=== PATIENT | male | born 1995 | race Caucasian/White ===

== ENCOUNTER 2017-06-03 15:34 | Emergency (ER) | payer MEDICAID ==
[~2017-06-03] VITALS: Ht 185.4 cm; Wt 74.8 kg
--- NOTE | 2017-06-03 16:00 | Urgent Treatment Center Report ---
History of Present Issue Date/Time Seen by Provider 06/03/17 1559 Visit Reason Pt arrived:Walked Presenting Problem:PT C/O KNOT IN LOWER GROIN AREA X3 DAYS Location if Accident: Onset of symptoms date/time:/ or onset unknown for:MEDICAL HX UNKNOWN Have you (or family members/close friends) recently traveled outside the [place]? N If Yes, where/when: Have you had exposure to infectious disease within the past month? TB? Other? Specify: Here alone c/o painful knot in penis. First noticed nearly one week ago and reported as unchanged since onset initially but then during exam, reports the swelling "comes and goes". "It looks perfectly normal but feels like a bernard under the skin". Described as "at the end" but on exam, tenderness on anterior surface at proximal/base of shaft. pain made worse w/ erection. Sexually active w/ one female. No intercourse since pain started. "I can't imagine. It would be too painful.". Denies dysuria, discharge, testicular/scrotal pain/swelling, difficulty urinating. No trauma to penis with or without erection. Denies any pain "like this" in the past. No hx of STIs although tested 3-4 times in the past "for various other symptoms" but each time, reports all testing negative. Source patient Exam Limitations no limitations ALLERGIES Coded Allergies: No Known Allergies (06/03/17) Home Medications Reported Medications Naproxen (Naprosyn 500MG Tab) 500 MG PO PRN PRN PAIN #60 History Medical History General CAD? No Angina: No AR: No Hypertension? No Hyperlipidemia? No CHF? No DVT? No PE? No COPD? No Asthma? Yes Anemia? No GERD? No Gastric ulcers? No GI Bleed? No Hernia? No Thyroid Problems? No Hypothyroidism? No CVA? No Seizures? No Diabetes? No Insulin Dependent: No Insulin Pump: No Home FSBS? No Renal Insuffiency? No UTI? No Stones? No BPH? No GB Disease: No Nephritic Syndrome? No Asplenia? No Hepatitis? No Sickle Cell Disease? No Arthritis? No Migraines? No Cataracts? No Glaucoma? No MRSA? No HIV? No TB? No Anxiety? No Depression? No Cancer? No More? No Immunization HX DT/Tetanus 1-4 YRS Surgical Hx Previous Surgery?N Social History Smoking Hx Smoker: Current Every Day Smoker Tobacco: Yes Type Cigarettes Alcohol Alcohol: No Review of Systems All Other Systems Reviewed and Negative Constitutional denies fever, denies malaise Gastrointestinal denies abdominal pain, denies nausea, denies vomiting Genitourinary see HPI. denies: frequency, hesitancy, pelvic pain, genital lesions. Skin see HPI, denies change in color Psychiatric/Neurological denies numbness, denies tingling Physical Exam Vital Signs Vital Signs Date Time Temp Pulse Resp B/P Pulse O2 O2 Flow FiO2 Ox Delivery Rate 06/03 1548 99.5 79 18 151/92 96 General Appearance normal appearance, no apparent distress Respiratory Status No: respiratory distress. Cardiovascular no peripheral edema Gastrointestinal normal bowel sounds, non tender, soft, no suprapubic tenderness , no bladder distention Back no CVA tenderness Male Genitalia normal genitalia (x/ tenderness), mild tenderness anterior surface base of penile shaft, no palpable or visual abnormalities Nurse present during exam? Yes (Sunflower) Neurologic alert Skin intact, normal color, warm/dry Medical Decision Making LABS/Meds/Orders Pt receiving controlled substance in ED? No Departure Departure Time of Disposition 1624 Disposition DC Home or Self Care(routine) Clinical Impression Primary Impression: Painful penis Condition STABLE Referrals Anuj HUNTER,Jose Angel Aparicio Call tomorrow morning and request follow up appointment for painful penile shaft Additional Instructions Your exam is normal but pain is your penis is not. Be SURE to schedule follow up. Discharge Counseling Counseled pt/family regarding diagnosis, follow up needs at 164
[2017-06-03 16:57] VITALS: BP 151/92
--- OUTSIDE RECORDS SUMMARY | 2017-06-12 07:40 | External Medical Summary Rpt | CCD ---
Author Author , YOSHI Organization YOSHI Address Unknown Phone [email or web address] Immunization Name Date Rout CVX Reac Dose Comm Prov Is Faci e tion ent ider Refu lity Give sed n Tdap 03-2 115 999 Hist H149 No H149 , 4-20 oric Adso 09 al rbed Info rmat ion - Sour ce Unsp ecif ied MMR 12-1 3 999 Hist H149 No H149 1-20 oric 00 al Info rmat ion - Sour ce Unsp ecif ied DTaP 12-1 107 999 Hist H149 No H149 , UF 1-20 oric 00 al Info rmat ion - Sour ce Unsp ecif ied [place] 12-1 10 999 Hist H149 No H149 o-IP 1-20 oric V 00 al Info rmat ion - Sour ce Unsp ecif ied Vari 11-2 21 999 Hist H149 No H149 cell 6-19 oric a 97 al Info rmat ion - Sour ce Unsp ecif ied DTaP 11-2 107 999 Hist H149 No H149 , UF 6-19 oric 97 al Info rmat ion - Sour ce Unsp ecif ied Hib, 11-2 17 999 Hist H149 No H149 UF 6-19 oric 97 al Info rmat ion - Sour ce Unsp ecif ied MMR 11-2 3 999 Hist H149 No H149 6-19 oric 97 al Info rmat ion - Sour ce Unsp ecif ied Hep 09-0 8 999 Hist H149 No H149 B, 4-19 oric ped/ 97 al adol Info rmat ion - Sour ce Unsp ecif ied [place] 09-0 2 999 Hist H149 No H149 o-OP 4-19 oric V 97 al Info rmat ion - Sour ce Unsp ecif ied [place] 03-1 2 999 Hist H149 No H149 o-OP 2-19 oric V 97 al Info rmat ion - Sour ce Unsp ecif ied DTP- 03-1 22 999 Hist H149 No H149 Hib 2-19 oric 97 al Info rmat ion - Sour ce Unsp ecif ied DTP- 11-2 22 999 Hist H149 No H149 Hib 6-19 oric 96 al Info rmat ion - Sour ce Unsp ecif ied [place] 11-2 2 999 Hist H149 No H149 o-OP 6-19 oric V 96 al Info rmat ion - Sour ce Unsp ecif ied Hep 10-1 8 999 Hist H149 No H149 B, 0-19 oric ped/ 96 al adol Info rmat ion - Sour ce Unsp ecif ied
--- OUTSIDE RECORDS SUMMARY | 2017-06-12 07:40 | External Medical Summary Rpt | CCD ---
Author Author , YOSHI Organization YOSHI Address Unknown Phone [email or web address] Team Providers Care Signal Manager Name Role Phone KELLY MIRAMONTES MD, Unavailable Unavailable KELLY Escalera MD, Unavailable Unavailable Kuldeep Escalera MD Purpose Continuity of Care Document - 01-01-2013 through 2016 Problems Code Diagnosis DOS Provider Status 845.11 845.11 08-21-2013 [place] SPRAIN [facility] RSAL E849.4 E849.4 08-21-2013 [place] ACCID IN [facility] AREA E927.0 E927.0 08-21-2013 [place] OVEREXERTIO [facility] N FROM [facility] SUDDEN STRENUOUS MOVEMENT 842.00 842.00 01-01-2013 [place] SPRAIN OF [facility] E885.9 E885.9 FALL 01-01-2013 [place] FROM [facility] SLIPPING, Hospital TRIPPING, OR STUMBLING NEC Allergies, Adverse Reactions, Alerts Type Allergy to substance Adverse Reaction to Substance Substance Reaction Severity NO KNOWN ALLERGIES Unknown Unknown Vital Signs 08-21-2013 12:54 Name Value Interpretat Reference Comment ion Range BP 72 mm[Hg] Diastolic BP Systolic 140 mm[Hg] Heart 60 /min Rate/Pulse O2% 99 % Respiratory 18 /min Rate 08-21-2013 12:53 Name Value Interpretat Reference Comment ion Range BP 72 mm[Hg] Diastolic BP Systolic 140 mm[Hg] Heart 60 /min Rate/Pulse O2% 99 % Respiratory 18 /min Rate 01-01-2013 20:49 Name Value Interpretat Reference Comment ion Range BP 78 mm[Hg] Diastolic BP Systolic 145 mm[Hg] Heart 64 /min Rate/Pulse O2% 98 % Respiratory 20 /min Rate 01-01-2013 20:46 Name Value Interpretat Reference Comment ion Range BP 85 mm[Hg] Diastolic BP Systolic 136 mm[Hg] Heart 74 /min Rate/Pulse O2% 98 % Respiratory 20 /min Rate Procedures Procedure DOS Code Location Performer Comment APPLICATI 93.54 [facility] ON OF [facility] [facility] Encounters Encounter Start End Date Code Location Performer Type Date Emergency TOÑO MIRAMONTES MD (ER) 3 12:45 3 12:53 [facility] Emergency TOÑO Escalera MD (ER) 3 20:17 3 20:50 [facility]
--- OUTSIDE RECORDS SUMMARY | 2017-06-12 07:40 | External Medical Summary Rpt | CCD ---
Author Author [employer] Organization [employer] Address Unknown Phone Unavailable Purpose Continuity of Care Document - through 2016
--- OUTSIDE RECORDS SUMMARY | 2017-06-12 07:40 | External Medical Summary Rpt | CCD ---
Author Author , YOSHI Organization YOSHI Address Unknown Phone [email or web address] Care Team Providers Care Power Plant Manager Name Role Phone KELLY MIRAMONTES MD, Unavailable Unavailable KELLY Escalera MD, Unavailable Unavailable Kuldeep Escalera MD Purpose Continuity of Care Document - 01-01-2013 through 2016 Problems Code Diagnosis DOS Provider Status 845.11 845.11 08-21-2013 [place] SPRAIN [facility] RSAL E849.4 E849.4 08-21-2013 [place] ACCID IN [facility] AREA E927.0 E927.0 08-21-2013 [place] OVEREXERTIO [facility] N FROM [facility] SUDDEN STRENUOUS MOVEMENT 842.00 842.00 01-01-2013 [place] SPRAIN OF [facility] E885.9 E885.9 FALL 01-01-2013 [place] FROM [facility] SLIPPING, Hospital TRIPPING, OR STUMBLING NEC [...] DOS Code Location Performer Comment APPLICATI 93.54 [facility] ON OF [facility] [facility] Encounters Encounter Start End Date Code Location Performer Type Date Emergency TOÑO MIRAMONTES MD (ER) 3 12:45 3 12:53 [facility] Emergency TOÑO Escalera MD (ER) 3 20:17 3 20:50 [facility]
--- OUTSIDE RECORDS SUMMARY | 2017-06-12 07:40 | External Medical Summary Rpt | CCD ---
Author Author , YOSHI Organization YOSHI Address Unknown Phone Immunization Name Date Rout CVX Reac Dose [...]
== END 2017-06-03 16:57 | disposition home or self-care (01) ==
LOC: UTC 15:34
DX: N48.89 Other specified disorders of penis (principal); J45.909 Unspecified asthma, uncomplicated; F17.210 Nicotine dependence, cigarettes, uncomplicated